=== PATIENT | female | born 1965 | race Caucasian/White ===

== ENCOUNTER 2020-09-30 10:00 | Outpatient (CLI) | payer OTHER, SELFPAY | END 2020-09-30 23:59 | disposition home or self-care (01) | LOC: MLB 10:00 → EDSTATUS 10-02 12:30 | PROVIDERS: ATTEND Internal Medicine Gastroenterology | DX: Z01.812 Encounter for preprocedural laboratory examination (principal); Z12.11 Encounter for screening for malignant neoplasm of colon; Z20.822 Contact with and (suspected) exposure to COVID-19 | CPT/HCPCS: U0003 ==